=== PATIENT | female | born 1965 | race Caucasian/White ===

== ENCOUNTER 2019-06-14 16:16 | Outpatient (CLI) | payer OTHER, SELFPAY ==
[2019-06-02 11:14] LABS: Thyroglobulin Antibody <15 U/mL (<=60); Thyroperoxidase Antibody 30 U/mL (<=60)
[2019-06-14 17:57] LABS: FREE T4 1.24 ng/dL (0.76-1.46); TSH 1.41 uIU/mL (0.36-3.74)
[2019-06-15 17:29] LABS: T3,Free 3.2 pg/mL (2.8-5.3)
== END 2019-06-14 16:36 ==
PROVIDERS: Visit Provider Nurse Practitioner Family
DX: E03.9 Hypothyroidism, unspecified (principal)
CPT/HCPCS: 36415; 86376; 84439; 84443; 84481